=== PATIENT | male | born 2000 | race Caucasian/White ===

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

== ENCOUNTER → 2025-05-12 | Outpatient (CLI) | payer OTHER ==
[~2025-05-12] MED LIST: CLAR1TAB2 PO; RITA10TA PO; VITATAB21 PO
== END ==
LOC: M RAD 08:31
PROVIDERS: ATTEND Nurse Practitioner Family
DX: M25.551 Pain in right hip (principal); M54.59 Other low back pain